=== PATIENT | male | born 2000 ===

== ENCOUNTER 2022-05-17 00:40 | Emergency (ER) | payer MEDICAID ==
[~2022-05-17] VITALS: Ht 167.6 cm; Wt 55.2 kg
[2022-05-17 01:21] VITALS: BP 127/79
== END 2022-05-17 04:39 | disposition left against medical advice (07) ==
LOC: ER 00:42
DX: R45.851 Suicidal ideations (principal); Z53.21 Procedure and treatment not carried out due to patient leaving prior to being seen by health care provider